=== PATIENT | male | born 1940 | race Caucasian/White ===

== ENCOUNTER 2016-03-13 11:55 | Emergency (ER) | payer OTHER ==
[~2016-03-13] VITALS: Ht 175.3 cm; Wt 89.5 kg
[2016-03-13 11:57] VITALS: BP 237/109; PULSE 61; RESP 15; TEMP 98.1; O2SAT 98
[2016-03-13 11:59] VITALS: BP 241/104
[2016-03-13 12:34] VITALS: RESP 16; O2SAT 94
[2016-03-13] MEDS ORDERED: ASPI81CH CHEW (12:42)
[2016-03-13] MEDS ORDERED: METF500T PO (12:42)
[2016-03-13] MEDS ORDERED: OMEGCAP PO (12:42)
--- NOTE | 2016-03-13 12:42 | RADRPT ---
EXAM DATE/TIME: 03/13/2016 12:20 [facility] COMPARISON: No previous studies available for comparison. INDICATIONS : Short of breath MEDICAL HISTORY : Hypertension. SURGICAL HISTORY : None. ENCOUNTER: Initial ACUITY: 4 - 6 days PAIN SCORE: 0/10 LOCATION: Bilateral chest FINDINGS: A single view of the chest demonstrates the lungs to be symmetrically aerated without evidence of mas s, infiltrate or effusion. The cardiomediastinal contours are unremarkable. Osseous structures are intact. CONCLUSION: No acute disease. Beto Andrew MD on March 13, 2016 at 12:40 Board Certified Radiologist. This report was verified electronically.
[2016-03-13] MEDS ORDERED: ATOR40TA16 PO (12:44)
[2016-03-13] MEDS ORDERED: ALLO100T PO (12:44)
[2016-03-13] MEDS ORDERED: LISI40TA PO (12:44)
[2016-03-13] MEDS ORDERED: cloNIDine HCL 0.1 MG TAB PO ONE (13:00)
--- NOTE | 2016-03-13 13:01 | PD ---
HPI Chief Complaint: Hypertension Time Seen by Provider: 12:55 Travel History International Travel<30 days: No Contact w/Intl Traveler<30days: No Traveled to known affect area: No History of Present Illness HPI 75-year-old male that presents to the ED for evaluation of hypertension. Per patient for the past 6 months she's been violent hypertension. Per patient for a long time his been taking lisinopril as well as metformin and allopurinol. Per patient has a history of gout, hypertension and diabetes as well as a mitral valve disease for which in 2013 he was supposed to have some sort of surgery but apparently that was delayed basically recommending to hold on until worsening symptoms to do the surgery. Patient apparently also didn't want to have surgery. Per patient his been checking his blood pressure as he recently got a new machine to check his blood pressure and his blood pressure has been high 180s. [facility] found to have a very highly elevated blood pressure and so he was brought here to the ED to get evaluated. Patient was not given anything for this. Per patient she's been compliant with his lisinopril which he takes 40 mg twice a day every day. Per patient he denies any chest pain or shortness of breath. No urinary or bowel movement issues. No numbness, tingling, weakness. Per patient and family members she did have a pressure behind the right eye this morning but it didn't last more than a couple of minutes. Patient denies any blurry vision or double vision. Patient denies any pain at this time. No other symptoms. He has no allergies to medication. He states been compliant with his medications. He states that he is currently switching from 2 [facility] clinics one in [place] to the one here as he feels more comfortable with the one here. PFSH Past Medical History Diabetes: Yes (METFORMIN) Patient Takes Glucophage: Yes Gout: Yes Hypertension: Yes Tetanus Vaccination: < 5 Years Influenza Vaccination: Yes Past Surgical History Surgical History: No Previous Surgery Social History Alcohol Use: No Tobacco Use: No Substance Use: No Allergies-Medications (Allergen,Severity, Reaction): Coded Allergies: No Known Allergies (Unverified , 03/13/16) Reported Meds & Prescriptions Reported Meds & Active Scripts Active Reported Lisinopril 40 Mg Tab 40 Mg PO BID Atorvastatin (Atorvastatin Calcium) 40 Mg Tab 40 Mg PO HS Allopurinol 100 Mg Tab 100 Mg PO DAILY Metformin (Metformin HCl) 500 Mg Tab 500 Mg PO DAILY With a meal [employer]-3 Fish Oil/Vitamin (Fish Oil-Cholecalciferol) 1,000-1,000 Mg Cap 1 Cap PO DAILY Aspirin 81 Mg Chew 81 Mg CHEW DAILY Review of Systems Except as stated in HPI: all other systems reviewed are Neg Physical Exam Narrative GENERAL: SKIN: Warm and dry. HEAD: Atraumatic. Normocephalic. EYES: Pupils equal and round 4 mm reactive to light and accommodation. No scleral icterus. No injection or drainage. ENT: No nasal bleeding or discharge. Mucous membranes pink and moist. Tongue is midline. No uvula deviation. NECK: Trachea midline. No JVD. CARDIOVASCULAR: Regular rate and rhythm. Slight murmur heard. No S3, no S4. RESPIRATORY: No accessory muscle use. Clear to auscultation. Breath sounds equal bilaterally. GASTROINTESTINAL: Abdomen soft, non-tender, nondistended. Hepatic and splenic margins not palpable. MUSCULOSKELETAL: Extremities without clubbing, cyanosis, or edema. No obvious deformities. . Patient said of the upper and lower extremities bilaterally. 2 + pulses bilaterally. NEUROLOGICAL: Awake and alert. No obvious cranial nerve deficits. Motor grossly within normal limits. Five out of 5 muscle strength in the arms and legs. Normal speech. PSYCHIATRIC: Appropriate mood and affect; insight and judgment normal. Data Data Last Documented VS Vital Signs Date Time Temp Pulse Resp B/P Pulse Ox O2 Delivery O2 Flow Rate FiO2 03/13/16 14:10 60 18 198/90 94 Room Air 03/13/16 11:57 98.1 Orders Electrocardiogram (03/13/16 12:03) Complete Blood Count With Diff (03/13/16 12:03) Basic Metabolic Panel (Bmp) (03/13/16 12:03) Ckmb (Isoenzyme) Profile (03/13/16 12:03) Troponin I (03/13/16 12:03) Chest, Single Ap (03/13/16 12:03) Iv Access Insert/Monitor (03/13/16 12:03) Ecg Monitoring (03/13/16 12:03) Oxygen Administration (03/13/16 12:03) Oximetry (03/13/16 12:03) Ct Brain W/O Iv Contrast(Rout) (03/13/16 ) Clonidine (Catapres) (03/13/16 13:00) CKMB (03/13/16 12:35) CKMB% (03/13/16 12:35) Labs Laboratory Tests Test 03/13/16 12:35 White Blood Count 7.0 TH/MM3 Red Blood Count 4.16 MIL/MM3 Hemoglobin 13.1 GM/DL Hematocrit 38.4 % Mean Corpuscular Volume 92.3 FL Mean Corpuscular Hemoglobin 31.5 PG Mean Corpuscular Hemoglobin 34.1 % Concent Red Cell Distribution Width 14.2 % Platelet Count 270 TH/MM3 Mean Platelet Volume 7.3 FL Neutrophils (%) (Auto) 75.8 % Lymphocytes (%) (Auto) 13.6 % Monocytes (%) (Auto) 9.0 % Eosinophils (%) (Auto) 1.0 % Basophils (%) (Auto) 0.6 % Neutrophils # (Auto) 5.3 TH/MM3 Lymphocytes # (Auto) 0.9 TH/MM3 Monocytes # (Auto) 0.6 TH/MM3 Eosinophils # (Auto) 0.1 TH/MM3 Basophils # (Auto) 0.0 TH/MM3 CBC Comment DIFF FINAL Differential Comment Sodium Level 139 MEQ/L Potassium Level 3.9 MEQ/L Chloride Level 104 MEQ/L Carbon Dioxide Level 26.8 MEQ/L Anion Gap 8 MEQ/L Blood Urea Nitrogen 13 MG/DL Creatinine 0.81 MG/DL Estimat Glomerular Filtration 92 ML/MIN Rate Random Glucose 112 MG/DL Calcium Level 8.6 MG/DL Total Creatine Kinase 120 U/L Creatine Kinase MB 2.2 NG/ML Troponin I 0.02 NG/ML MDM Medical Decision Making Medical Screen Exam Complete: Yes Emergency Medical Condition: Yes Medical Record Reviewed: Yes Interpretation(s) CBC & BMP Diagram 03/13/16 12:35 CKMB and troponin negative EKG shows sinus bradycardia but no sign of acute disease or ischemia. Differential Diagnosis Hypertension versus hypertensive urgency versus hypertensive emergency versus kidney injury versus ACS versus CVA Narrative Course 75-year-old male that presents to the ED for evaluation of hypertension. Patient was properly examined and was found to have signs and symptoms consistent with hypertension. Patient has no other symptom other than a mild pressure behind his right eye this morning which is no longer present. Patient states that he is compliant with his medications. Patient currently switching from providers. He has not been given anything for blood pressure to his normal lisinopril. Accommodation is this time is blood pressures highly elevated in the 240s is to give clonidine to help bring down the blood pressure as well as labs and imaging to make sure there is no sign of acute disease concerning for hypertensive emergency. Patient is agreeable with this plan. Labs and imaging ordered. Labs and imaging were essentially unremarkable. With 1 dose of clonidine patient's blood pressure did come down. Patient is symptomatic. My attending Dr. Lima evaluated the patient and agrees with plan. Patient will be sent home with prescription for clonidine. Patient agrees with plan. Patient understands reasons to come back. Told to follow up with PCP. See ED worsening symptoms. Diagnosis Primary Impression: Hypertension Qualified Code: I10 - Essential hypertension Patient Instructions: General Instructions Additional Instructions: Take medications as prescribed. Follow with PCP. See ED for any worsening symptoms. Med/Other Pt SpecificInfo: Prescription(s) given Disposition: 01 DISCHARGE HOME Condition: Stable Henrique Warner Mar 13, 2016 13:01
[2016-03-13 13:11] LABS: AUTOMATED NEUTROPHIL # 5.3 TH/MM3 (1.8-7.7); BASOPHIL % 0.6 % (0.0-2.0); EOSINOPHIL # 0.1 TH/MM3 (0-0.4); HEMATOCRIT 38.4 % (39.0-51.0); HEMO FLAGS DIFF FINAL; LYMPH % 13.6 % (9.0-44.0); LYMPHOCYTE # 0.9 TH/MM3 (1.0-4.8); MEAN CELL VOLUME 92.3 FL (80.0-100.0); MEAN CORPUSCULAR HEMOGLOBIN 31.5 PG (27.0-34.0); MEAN CORPUSCULAR HGB CONC 34.1 % (32.0-36.0); NEUT % 75.8 % (16.0-70.0); PLATELET COUNT 270 TH/MM3 (150-450); RED BLOOD COUNT 4.16 MIL/MM3 (4.50-5.90); RED CELL DISTRIBUTION WIDTH 14.2 % (11.6-17.2)
[2016-03-13 13:27] LABS: ANION GAP 8 MEQ/L (5-15); BICARBONATE 26.8 MEQ/L (21.0-32.0); BLOOD UREA NITROGEN 13 MG/DL (7-18); CHLORIDE 104 MEQ/L (98-107); GLOMERULAR FILTRATION RATE 92 ML/MIN (>89); POTASSIUM 3.9 MEQ/L (3.5-5.1); SODIUM (NA) 139 MEQ/L (136-145)
--- NOTE | 2016-03-13 13:31 | RADRPT ---
EXAM DATE/TIME: 03/13/2016 13:15 [facility] COMPARISON: No previous studies available for comparison. INDICATIONS : Headache, hypertension. RADIATION DOSE: 41.32 CTDIvol (mGy) MEDICAL HISTORY : Hypertension. Diabetes mellitus type 2. SURGICAL HISTORY : None. ENCOUNTER: Initial ACUITY: 1 day PAIN SCALE: 4/10 LOCATION: cranial TECHNIQUE: Multiple contiguous axial images were obtained of the head. Using automated exposure control and adj ustment of the mA and/or kV according to patient size, radiation dose was kept as low as reasonably a chievable to obtain optimal diagnostic quality images. FINDINGS: CEREBRUM: The ventricles are normal for age. No evidence of midline shift, mass lesion, hemorrhage or acute in farction. No extra-axial fluid collections are seen. POSTERIOR FOSSA: The cerebellum and brainstem are intact. The 4th ventricle is midline. The cerebellopontine angle i s unremarkable. EXTRACRANIAL: The visualized portion of the orbits is intact. SKULL: The calvaria is intact. No evidence of skull fracture. CONCLUSION: No acute intracranial disease. Sid Barry MD on March 13, 2016 at 13:30 Board Certified Radiologist. This report was verified electronically.
[2016-03-13 13:32] LABS: CREATINE KINASE 120 U/L (39-308)
[2016-03-13 13:44] LABS: CKMB 2.2 NG/ML (0.5-3.6)
[2016-03-13 14:10] VITALS: BP 198/90; PULSE 60; RESP 18; O2SAT 94
[2016-03-13] MEDS ORDERED: CLON0.1T PO (14:29)
--- NOTE | 2016-03-14 14:27 | EKG ---
Date Performed: 03/13/2016 Time Performed: 12:11:30 PTAGE: 75 years EKG: SINUS BRADYCARDIA WITH FIRST DEGREE AV BLOCK ABNORMAL ECG NO PREVIOUS TRACING DOCTOR: Radha Cat Interpretating Date/Time 03/14/2016 14:22:26
== END 2016-03-13 16:22 | disposition home or self-care (01) ==
LOC: NEPE 11:55
DX: I10 Essential (primary) hypertension (principal); R06.02 Shortness of breath; R51 Headache; R00.1 Bradycardia, unspecified; I44.0 Atrioventricular block, first degree; R94.31 Abnormal electrocardiogram [ECG] [EKG]; E11.9 Type 2 diabetes mellitus without complications; Z79.84 Long term (current) use of oral hypoglycemic drugs
CPT/HCPCS: 70450; 71010; 80048; 82550; 82552; 84484; 85025; 93005